=== PATIENT | female | born 1955 | race Caucasian/White ===

== ENCOUNTER 2017-06-04 10:38 | Emergency (ER) | payer OTHER ==
--- NOTE | 2017-06-04 11:16 | RADIOLOGY REPORT ---
A single view of the chest is compared with prior examination dated 11/16/2015. Heart, vessels and lungs are stable and unremarkable. IMPRESSION: Stable, unremarkable single portable view of the chest. MTDD
[2017-06-04 11:21] LABS: BASOPHILS 0.2 % (0.0-2.0); EOSINOPHILS 0.9 % (0.0-6.0); HEMATOCRIT 41.6 % (36.0-48.0); HEMOGLOBIN 14.1 g/dL (12.0-16.0); LYMPHOCYTES 38.2 % (20.0-40.0); MEAN CORPUSCULAR HEMOGLOBIN 29.5 pg (29.0-35.0); MEAN PLATELET VOLUME 7.5 fL (7.4-10.4); MONOCYTES# 0.4 X 10^3uL (0.2-1.0); NEUTROPHILS 53.7 % (54.0-75.0); NEUTROPHILS# 2.9 X 10^3uL (2.6-6.7); PLATELET COUNT 327 X 10^3uL (130-440); RED BLOOD COUNT 4.78 X 10^6uL (4.20-6.10); RED CELL DISTRIBUTION WIDTH 12.1 % (11.5-14.5); WHITE BLOOD COUNT 5.3 X 10^3uL (3.9-10.7)
[2017-06-04] MEDS ORDERED: NITROGLYCERIN 0.4 MG TAB.SUBL SUBLINGUAL ONE (11:25)
[2017-06-04] MEDS ORDERED: KETOROLAC TROMETHAMINE 30 MG/ML VIAL ONE (11:29)
[2017-06-04 11:35] LABS: ALBUMIN 4.2 g/dL (3.5-5.0); ALKALINE PHOSPHATASE 54 U/L (38-126); ALT 28 U/L (9-52); AST 29 U/L (14-36); BILIRUBIN, DIRECT 0.1 mg/dL (0.0-0.4); BILIRUBIN, TOTAL 0.6 mg/dL (0.2-1.3); BLOOD UREA NITROGEN 14 mg/dL (7-17); CALCIUM 9.5 mg/dL (8.4-10.2); CALCULATED LDL 113 mg/dL; CHLORIDE 104 mmol/L (98-107); CHOL/HDL RATIO 3 (<4); CHOLESTEROL 188 mg/dL; EST GLOMERULAR FILTRATION RATE > 60 mL/min; GLUCOSE 94 mg/dL (70-100); HDL CHOLESTEROL 54 mg/dL; POTASSIUM 3.3 mmol/L (3.5-5.1); SODIUM 141 mmol/L (137-145); TRIGLYCERIDES 106 mg/dL; VLDL CHOLESTEROL 21 mg/dL (<30)
[2017-06-04] MEDS ORDERED: NITROGLYCERIN OINT 1 GM PACKET ONE (11:38)
[2017-06-04 11:46] LABS: TROPONIN I < 0.012 ng/mL (0.00-0.034)
[2017-06-04 12:48] LABS: C-REACTIVE PROTEIN < 5.0 mg/L (<10.0)
--- NOTE | 2017-06-04 12:56 | ER NURSING DOCUMENTATION ---
Nurse's Notes [facility] Name:Sangita Nails Age:61 yrs Sex:Female :1955 Arrival Date:06/04/2017 Time:10:38 BedTrauma-A Private MD: Diagnosis:Atypical Chest Pain Presentation: 06/04 10:50 Transition of care: patient was not received from another setting of care. Notified ED nf Physician of patient's arrival and CC Dr. Copeland notified. 10:50 Acuity: CARMELA 3 nf 10:50 Method Of Arrival: Private Vehicle nf 12:53 Presenting complaint: Patient states: has pain in her right jaw that started while sc1 driving to work this morning, c/o right ant. chest also stated she has had nausea on and off for a week. Triage Assessment: 11:13 General: Appears in no apparent distress, well developed, well nourished, well groomed. sc1 12:55 General: Behavior is cooperative, pleasant. sc1 Historical: - Allergies: No known drug Allergies; - Home Meds: 1. levothyroxine 88 mcg oral tab 1 tab once daily 2. lamotrigine 100 mg oral tab 1 tab once daily 3. levetiracetam 1,000 mg oral tab 1 tab every 12 hours 4. sertraline 100 mg oral tab 1 tab once daily 5. Flovent Inhl - PMHx: MIGRAINES; Kennedy Aneurysm ; ASTHMA; Acute Headache (May 28, 2016); - PSHx: TONSILLECTOMY; HYSTERECTOMY; Brain Coil ; Brain Stent; - Ebola Screening: : Patient negative for fever greater than or equal to 101.5 degrees Fahrenheit, and additional compatible Ebola Virus Disease symptoms. Patient denies exposure to infectious person. Patient denies travel to an Ebola-affected area in the 21 days before illness onset. No symptoms or risks identified at this time. . - Family history: Mother adopted and young from pancreatic cancer; father also as young man from MVC; to siblings, both alive and well w/o PIHD/CVA. - Immunization history: Pneumococcal vaccine status is unknown, Flu Vaccine < 1 year. - Social history: Smoking status: Patient states was never smoker of tobacco. Patient/guardian denies using alcohol, street drugs, IV drugs, marijuana. Screenin:26 Infectious Disease Risk None. Abuse screen: Denies threats or abuse. Nutritional sc1 screening: No deficits noted. Assessment: 11:31 Pain: Denies pain. sc1 Vital Signs: 10:44 BP 155 / 87 (auto/); sc1 10:46 Pulse 71 MON; Resp 16; Pulse Ox 96% ; sc1 11:21 BP 125 / 75 (auto/); sc1 11:21 Pulse 66 MON; Resp 11; Pulse Ox 94% ; sc1 12:30 BP 122 / 76 (auto/); sc1 12:36 Pulse 60 MON; Resp 21; Pulse Ox 97% ; sc1 ED Course: 10:40 Patient arrived in ED. ama 10:49 Radha Cabezas, RN is Primary Nurse. nf 10:50 Triage completed. nf 10:50 nurse monitoring on. Pulse ox on. NIBP on. sc1 10:51 EKG done. (by ED staff). Reviewed by Kennedy Copeland MD. nf 10:52 Kennedy Copeland MD is Attending Physician. be 11:04 Primary Nurse role handed off by Radha Cabezas, TERESO fl1 11:04 Opal Zhang, RN is Primary Nurse. sc1 11:04 Inserted peripheral IV: 20 gauge in right antecubital area and blood collected. sc1 11:05 Port Xray Completed. dnn 11:26 Notified ED Physician of patient's arrival and chief complaint. Dr. Copeland. Arm band sc1 placed on Bed in low position Call Light in Reach Gowned HOB Elevated Side rails up x1. EKG done per protocol. Labs ordered per protocol. X-ray done. 12:36 Joseph Ovalle MD is Referral Physician. be 12:46 Discontinued IV intact, bleeding controlled, pressure dressing applied, No sc1 redness/swelling at site. 12:55 Valuables Remains with patient. sc1 13:06 EKG attached nf Administered Medications: 11:13 Drug: Aspirin Chewable Tablet 324 mg; Route: PO; sc1 11:14 Drug: Nitroglycerin 0.4 mg; Route: Sublingual; sc1 11:21 Drug: NS 0.9% 1000 ml; Route: IV; Rate: bolus; Site: right antecubital; Delivery: sc1 [place] [facility]; 12:47 Follow up: IV Status: Infusion discontinued; IV Intake: 800ml sc1 11:21 Drug: Toradol 15 mg; Route: IVP; Site: right antecubital; [facility] 11:22 Drug: Nitro-Bid Ointment 2 % 1 inches; Route: Transdermal; Site: anterior chest wall; [facility] Intake: 12:47 IV: 800ml; Total: 800ml. fl1 Outcome: 12:37 Discharge ordered by . be 12:52 Discharged to home ambulatory. [facility] 12:52 Condition: stable 12:52 Discharge instructions given to patient, Instructed on discharge instructions, follow up and referral plans. medication usage, Demonstrated understanding of instructions, medications, Prescriptions given X 1. 12:55 Patient left the ED. fl1 Signatures: Opal Zhang RN RN [facility] aRdha Cabezas RN RN nf Kennedy Copeland MD MD be Norman, David dnn Averdick, Andrew, Reg Reg ama
--- NOTE | 2017-06-04 12:57 | ER PHYSICIAN DOCUMENTATION ---
Physician Documentation [facility] Name:Sangita Nails Age:61 yrs Sex:Female :1955 Arrival Date:06/04/2017 Time:10:38 BedTrauma-A Private MD: Kennedy Stevens Disposition: 06/04/17 12:37 Discharged to Home/Self Care. Impression: Atypical Chest Pain. - Condition is Good. - Discharge Instructions: CHEST PAIN Atypical - CHEST PAIN, Uncertain Cause. - Prescriptions for Nitrostat 0.4 mg Sublingual Tablet, Sublingual - place 1 tablet by SUBLINGUAL route one time As needed - at the first sign of an attack; no more than 3 tablets are recommended within a 15 minute period.; 25 tablet. - Medical Reconciliation form form. - Follow up: Joseph Ovalle MD; When: Tomorrow; Reason: Recheck today's complaints. - Problem is new. - Symptoms have improved. HPI: 06/04 11:00 This 61 yrs old Female presents to ER via Private Vehicle with complaints of be Jaw Pain, Nausea. 11:00 The patient presents to the emergency department with nausea, that is mild, be intermittent. Onset: The symptom(s)/episode began/occurred last week. Associated signs and symptoms: Pertinent positives: right sided facial/jaw pain and right chest pain, Pertinent negatives: abdominal pain, belching, diarrhea, fever, SOB, cough or improvement with rescue inhalers. 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 Historical: - Allergies: No known drug Allergies; - Home Meds: 1. levothyroxine 88 mcg oral tab 1 tab once daily 2. lamotrigine 100 mg oral tab 1 tab once daily 3. levetiracetam 1,000 mg oral tab 1 tab every 12 hours 4. sertraline 100 mg oral tab 1 tab once daily 5. Flovent Inhl - PMHx: MIGRAINES; Kennedy Aneurysm ; ASTHMA; Acute Headache (May 28, 2016); - PSHx: TONSILLECTOMY; HYSTERECTOMY; Brain Coil ; Brain Stent; - Ebola Screening: : Patient negative for fever greater than or equal to 101.5 degrees Fahrenheit, and additional compatible Ebola Virus Disease symptoms. Patient denies exposure to infectious person. Patient denies travel to an Ebola-affected area in the 21 days before illness onset. No symptoms or risks identified at this time. . - Family history: Mother adopted and young from pancreatic cancer; father also as young man from MVC; to siblings, both alive and well w/o PIHD/CVA. - Immunization history: Pneumococcal vaccine status is unknown, Flu Vaccine < 1 year. - Social history: Smoking status: Patient states was never smoker of tobacco. Patient/guardian denies using alcohol, street drugs, IV drugs, marijuana. ROS: 11:00 Abdomen/GI: Positive for nausea, Negative for abdominal pain, diarrhea. be 11:00 MS/extremity: Positive for tenderness, right anterior chest wall. 11:00 All other systems are negative. Exam: 11:00 Head/Face: Normocephalic, atraumatic. be Eyes: Pupils equal round and reactive to light, extra-ocular motions intact. Lids and lashes normal. Conjunctiva and sclera are non-icteric and not injected. Cornea within normal limits. Periorbital areas with no swelling, redness, or edema. Chest/axilla: Normal chest wall appearance and motion. Tender right anterior chest wall with no deformity. No lesions are appreciated. 11:00 MS/ Extremity: Pulses equal, no cyanosis. Neurovascular intact. Full, normal range be of motion. 11:00 Constitutional: The patient appears alert, comfortable, non-diaphoretic, non-toxic, well developed, well hydrated, well groomed, well nourished. 11:00 Cardiovascular: Rate: normal, Rhythm: regular, Pulses: no pulse deficits are appreciated, Pulses are 2+ in left carotid pulse and right carotid pulse. Heart sounds: normal, normal S1and S2, no S3 or S4, Edema: is not appreciated, JVD: is not appreciated. 11:00 Abdomen/GI: Inspection: abdomen appears normal, Bowel sounds: normal, Palpation: abdomen is soft and non-tender, in all quadrants. 11:00 Skin: Turgor: is excellent. Vital Signs: 10:44 BP 155 / 87 (auto/); sc1 10:46 Pulse 71 MON; Resp 16; Pulse Ox 96% ; sc1 11:21 BP 125 / 75 (auto/); sc1 11:21 Pulse 66 MON; Resp 11; Pulse Ox 94% ; sc1 12:30 BP 122 / 76 (auto/); sc1 12:36 Pulse 60 MON; Resp 21; Pulse Ox 97% ; sc1 MDM: 10:52 Patient medically screened. be 11:00 Differential diagnosis: Nonspecific abd pain, gastritis, cholecystitis. Data reviewed: be and as a result, I will. ECG:. Special discussion: Based on the history and exam findings, there is no indication for further emergent testing or inpatient evaluation. I discussed with the patient/guardian the need to see the lining inserter for further evaluation of the symptoms. Patient had complete relief of facial, jaw and chest wall pain with ASA, NTG and ketorolac. NTP 1 inch applied and appointment made with cardiology tomorrow. NTG prescribed.. 13:06 EKG attached nf 06/04 11:27 Order name: CBC AUTO DIF, MDIF/RMOR IF IND; Complete Time: 13:03 EDMS 06/04 12:08 Interpretation: Normal. be 06/04 11:36 Order name: BASIC METABOLIC PANEL; Complete Time: 13:03 EDMS 06/04 12:08 Interpretation: Normal Except: hypokalemia. be 06/04 11:36 Order name: MAGNESIUM; Complete Time: 13:03 EDMS 06/04 12:08 Interpretation: Normal. be 06/04 11:36 Order name: HEPATIC PANEL; Complete Time: 13:03 EDMS 06/04 12:08 Interpretation: Normal. be 06/04 11:36 Order name: LIPID PANEL; Complete Time: 13:03 EDMS 06/04 12:09 Interpretation: Normal. be 06/04 11:47 Order name: BNP,NT-PRO; Complete Time: 13:03 EDMS 06/04 12:09 Interpretation: Normal Except. be 06/04 11:47 Order name: TROPONIN I; Complete Time: 13:03 EDMS 06/04 12:09 Interpretation: Normal. 06/04 11:48 Order name: LACTATE; Complete Time: 12:19 EDMS 06/04 12:09 Interpretation: Normal. 06/04 11:57 Order name: DDIMER; Complete Time: 13:03 EDMS 06/04 12:10 Interpretation: Normal. be 06/04 12:48 Order name: C-REACTIVE PROTEIN; Complete Time: 13:03 EDMS 06/04 13:03 Interpretation: Normal: normal. be 07 11:54 Order name: CHEST; SINGLE VIEW [id number]; Complete Time: 12:19 EDMS 06/04 10:55 Order name: 12-lead EKG; Complete Time: 11:00 be 06/04 10:55 Order name: Iv Saline Lock; Complete Time: 11: be 06/04 10:55 Order name: Place Patient On Monitor; Complete Time: 11: be 06/04 10:55 Order name: Pulse Ox Continuous; Complete Time: 11: be 06/04 10:55 Order name: Oxygen; Complete Time: 11: be EC:00 Rate is 63 beats/min. Rhythm is regular, Normal Sinus Rhythm with No ectopy. QRS [place] be is Normal. MO interval is normal. QRS interval is normal. QT interval is normal. No Q waves. T waves are Normal. No ST changes noted. Clinical impression: Normal ECG. Reviewed by me. Dispensed Medications: 11:13 Drug: Aspirin Chewable Tablet 324 mg; Route: PO; ne1 11:14 Drug: Nitroglycerin 0.4 mg; Route: Sublingual; [facility] [place] 11:21 Drug: NS 0.9% 1000 ml; Route: IV; Rate: bolus; Site: right antecubital; Delivery: [facility] [place] [facility]; 12:47 Follow up: IV Status: Infusion discontinued; IV Intake: 800ml [facility] 11:21 Drug: Toradol 15 mg; Route: IVP; Site: right antecubital; [facility] [place] 11:22 Drug: Nitro-Bid Ointment 2 % 1 inches; Route: Transdermal; Site: anterior chest wall; [facility] [place] Signatures: Opal Zhang RN RN [facility] [place] Radha Cabezas, TERESO RN Kennedy Robbins MD MD be
== END 2017-06-04 12:56 | disposition home or self-care (01) ==
LOC: ER 10:38
DX: R07.89 Other chest pain (principal); R68.84 Jaw pain; R11.0 Nausea; E87.6 Hypokalemia; Z79.899 Other long term (current) drug therapy; Z86.79 Personal history of other diseases of the circulatory system
CPT/HCPCS: 71010; 80048; 80061; 80076; 83605; 83735; 83880; 84484; 85025; 85379; 86140; 93005; 96361; 96374; 99285; J1885